=== PATIENT | female | born 1965 | race Native Hawaiian/Other Pacific Islander ===

== ENCOUNTER 2022-01-14 14:37 | Emergency (ER) | payer OTHER ==
[~2022-01-14] VITALS: Ht 152.4 cm; Wt 108.9 kg
[2022-01-14 14:52] VITALS: TEMP 98.9
[2022-01-14 15:59] LABS: PLATELET COUNT 357 K/uL (152-353)
[2022-01-14 16:06] LABS: POTASSIUM 4.3 mmol/L (3.6-5.2)
[2022-01-14 16:46] VITALS: BP 148/76
== END 2022-01-14 16:58 | disposition home or self-care (01) ==
LOC: ED 14:37
PROVIDERS: Emergency Medicine
DX: R29.898 Other symptoms and signs involving the musculoskeletal system (principal)
CPT/HCPCS: 80048; 85027; 93005; 99283